=== PATIENT | male | born 2000 | race African-American/Black ===

== ENCOUNTER 2021-08-29 20:25 | Emergency (ER) | payer SELFPAY ==
[2021-08-29 20:39] VITALS: BP 132/70; PULSE 110; RESP 16; TEMP 36.6; O2SAT 98
== END 2021-08-29 21:44 | disposition left against medical advice (07) ==
LOC: ANHED 22:03
DX: Z53.21 Procedure and treatment not carried out due to patient leaving prior to being seen by health care provider (principal)
CPT/HCPCS: 99199